=== PATIENT | female | born 1945 | race Caucasian/White ===

== ENCOUNTER → 2022-12-22 | Outpatient (CLI) | payer MEDICARE, SELFPAY ==
--- NOTE | 2022-12-22 12:41 | CT_ITS ---
STUDY: CTA CHEST REASON FOR EXAM: Female, 77 years old. Abnormal echo RADIATION DOSAGE (If Supplied By Facility): CTDIvol = ( 8.72 ) mGy, DLP = ( 493.31 ) mGycm TECHNIQUE: The examination was performed with the intravenous administration of IV 100mL Isovue-370. Post-processing of the angiographic images was performed, with multiplanar reformation and 3D reconstruction. Individualized dose optimization techniques were used for this CT. COMPARISON: None. FINDINGS: Normal enhancement of the main pulmonary artery and right and left pulmonary arteries. Normal enhancement of the bilateral peripheral pulmonary arteries. There is no demonstrated pulmonary embolism. There is atherosclerotic calcification of the aortic arch with tortuosity. There is no demonstrated aortic dissection. There are calcifications of the coronary arteries. Normal mediastinum. Normal hilar regions. Normal visualized trachea and bronchi. The lungs are well expanded. Normal pulmonary parenchyma. Normal pleura. Normal chest wall structures. There are degenerative changes of thoracic spine. Normal visualized upper abdomen. CT/CTA Chest W/WO Contrast IMPRESSION: No acute abnormality is seen. Electronically Signed: Bassam Denson MD at 15:10 EDT ,
[2022-12-22 13:45] LABS: CREATININE FINGERSTICK < 0.9 mg/dL (0.55-1.02); EGFR FINGERSTICK > 60.0000 mL/min (>60)
== END | disposition home or self-care (01) ==
LOC: CT 12:40
PROVIDERS: PCP Physician Assistant; Referring Provider Internal Medicine Cardiovascular Disease; Visit Provider Internal Medicine Cardiovascular Disease
DX: R93.1 Abnormal findings on diagnostic imaging of heart and coronary circulation (principal); I51.7 Cardiomegaly
CPT/HCPCS: 71275; Q9967

== ENCOUNTER → 2023-01-09 | Outpatient (CLI) | payer MEDICARE, SELFPAY ==
--- NOTE | 2023-01-11 15:30 | STRESSREP_ITS ---
Stress Test Report Date: 01/09/2023 Procedure: Pharmacologic stress nuclear imaging study Indications: Abnormal echocardiogram Consent: Per the patient Procedure: The patient underwent pharmacologic (Regadenoson 0.4mg ) evaluation with a peak heart rate of 134 beats per minute (94%predicted maximal heart rate) and a peak blood pressure of 140/82 mmHg. The baseline ECG demonstrated normal sinus rhythm. The peak pharmacologic ECG demonstrated no ischemic changes. There were no cardiac dysrhythmias pretest, during pharmacologic infusion, or recovery. There was no complaint of chest discomfort during pharmacologic infusion or recovery. The patient was injected with 11.4 millicuries of technetium 99m Cardiolite and subsequently rest SPECT Cardiolite nuclear imaging was obtained in the horizontal long, vertical long, and short axis views. The patient underwent pharmacologic (Regadenoson) evaluation. The patient was injected with 34.6 mi llicuries of technetium 99m Cardiolite and subsequently stress SPECT Cardiolite nuclear imaging was obtained in the horizontal long, vertical long, and short axis views. A gated Cardiolite study at peak stress was obtained. The examination was stopped secondary to completion of protocol. Rest and stress SPECT Cardiolite nuclear imaging status post realignment, normalization, and attenuation correction demonstrate no fixed or reversible perfusion defects. There is end systolic thickening and brightening. The gated Cardiolite study demonstrates myocardial thickening and inward wall motion. The reported LVEF is 88%. Impression: 1. Pharmacologic (Regadenoson) evaluation 2. Peak pharmacologic ECG with no ischemic changes. 3. There were no cardiac dysrhythmias pretest, during pharmacologic infusion, or recovery. 5. No fixed or reversible perfusion defects. 6. The gated Cardiolite study reports an LVEF of 88%. This note was generated with [employer] software. It may contain incorrect words, spelling, and punctuation that were not noted in checking the note before signing.
== END | disposition home or self-care (01) ==
PROVIDERS: PCP Physician Assistant; Referring Provider Internal Medicine Cardiovascular Disease; Visit Provider Internal Medicine Cardiovascular Disease
DX: R94.31 Abnormal electrocardiogram [ECG] [EKG] (principal); I25.10 Atherosclerotic heart disease of native coronary artery without angina pectoris; R60.0 Localized edema; R93.1 Abnormal findings on diagnostic imaging of heart and coronary circulation; I51.89 Other ill-defined heart diseases; I51.7 Cardiomegaly; I10 Essential (primary) hypertension; E78.5 Hyperlipidemia, unspecified
CPT/HCPCS: 78452; 93017; A9500; A4216; J2785

== ENCOUNTER → 2023-04-16 | Outpatient (CLI) | payer MEDICARE, SELFPAY ==
--- NOTE | 2023-04-16 10:41 | VDLE_ITS ---
Reason For Study: Pain BLE RIGHT LEFT CFV is compressible, spontaneous, phasic, CFV is compressible, spontaneous, phasic, competent and demonstrates normal competent, and demonstrates normal augmentation. augmentation. FV is compressible, spontaneous, phasic, FV is compressible, spontaneous, phasic, competent and demonstrates normal competent and demonstrates normal augmentation. augmentation. POP V is compressible, spontaneous, phasic, POP V is compressible, spontaneous, phasic, competent and demonstrates normal competent and demonstrates normal augmentation. augmentation. T/P Trunk is compressible. T/P Trunk is compressible. PTV is compressible. PTV is compressible. RT PerV is compressible. LT PerV is compressible. SFJ is competent and measures 0.43cm x 0.40 SFJ is competent and measures 0.54cm x 0.47 cm. cm. GSV proximal thigh measures 0.27cm x 0.27 cm. GSV proximal thigh measures 0.39cm x 0.38 cm. GSV at knee measures 0.53cm x 0.60 cm. GSV at knee measures 0.41cm x 0.38 cm. GSV INCOMPETENT throughout for greater than GSV INCOMPETENT throughout for greater than 0.5 seconds. 0.5 seconds. ASV proximal thigh is INCOMPETENT for greater ASV proximal calf is INCOMPETENT for greater than 0.5 seconds and measures 0.56cm x 0.58 than 0.5 seconds and measures 0.39cm x 0.42 cm. cm. ASV distal thigh is INCOMPETENT for greater SSV proximal calf is INCOMPETENT for greater than 0.5 seconds and measures 0.49cm x 0.53 than 0.5 seconds and measures 0.22cm x 0.20 cm. cm. ASV proximal calf is INCOMPETENT for greater than 0.5 seconds and measures 0.51cm x 0.47 cm. SSV proximal calf is INCOMPETENT for greater than 0.5 seconds and measures 0.27cm x 0.26 cm. Procedure This is a venous duplex using B-mode, color flow and spectral Doppler. Exam performed in department. A preliminary report was called and/or faxed to Dr. Jorgensen. VL/Venous Duplex US - Adithya Extrem Interpretation Summary Deep veins of the bilateral lower extremities are patent and compressible segme ntally. There is no evidence of bilateral lower extremity deep vein thrombosis. The bilateral great saphenous veins appear patent and compressible segmentally. Positive for reflux in the right great saphenous vein, accessoory saphenous vei n, and small saphenous vein. Positive for reflux in the left great saphenous vein, accessoory saphenous vein , and small saphenous vein. Ordering Physician: Cesar Jorgensen Referring Physician: Francisca Guajardo Performed By: Zahra Medina, CHRISCS, RVT
== END | disposition home or self-care (01) ==
PROVIDERS: PCP Physician Assistant; Referring Provider Surgery Trauma Surgery; Visit Provider Surgery Trauma Surgery
DX: R60.0 Localized edema (principal)
CPT/HCPCS: 93970

== ENCOUNTER → 2024-09-19 | Outpatient (CLI) | payer MEDICARE, SELFPAY ==
--- NOTE | 2024-09-19 08:56 | VDLE_ITS ---
Reason For Study: Swelling RIGHT LEFT CFV is compressible, spontaneous, phasic, GSV is normal. competent and demonstrates normal CFV is compressible, spontaneous, phasic, augmentation. competent, and demonstrates normal Procedure augmentation. This is a venous duplex using B-mode, color FV is compressible, spontaneous, phasic, flow and spectral Doppler. competent and demonstrates normal Exam performed in department. augmentation. Patient was scanned in reverse Trendelenburg POP V is compressible, spontaneous, phasic, position during reflux assessment. competent and demonstrates normal augmentation. T/P Trunk is compressible. PTV is compressible. LT PerV is compressible. SFJ is competent and measures 0.61 cm. GSV proximal thigh measures 0.45x0.49 cm. GSV at knee measures 0.39x0.48 cm. GSV INCOMPETENT throughout for greater than 0.5 seconds. ASV proximal calf is INCOMPETENT for greater than 0.5 seconds and measures 0.42x0.46 cm. Comes from ASV in groin that is competent. SSV mid calf is INCOMPETENT for greater than 0.5 seconds and measures 0.21x0.28 cm. VL/Venous Duplex US, Unilateral Interpretation Summary Deep veins of the left lower extremity are patent and compressible segmentally. There is no evidence of left lower extremity deep vein thrombosis. The left great saphenous vein belinda ears patent and compressible segmentally. Positive for reflux in the left great saphenous vein throughout, accessory saph enous vein in proximal calf, small saphenous vein Ordering Physician: Vandana Saucedo Referring Physician: Francisca Guajardo PA Performed By: Yelena Bernard RVT and Student
== END | disposition home or self-care (01) ==
LOC: CVS 08:55
PROVIDERS: PCP Physician Assistant; Referring Provider Physician Assistant; Visit Provider Physician Assistant
DX: I87.2 Venous insufficiency (chronic) (peripheral) (principal); I83.812 Varicose veins of left lower extremity with pain
CPT/HCPCS: 93971

== ENCOUNTER 2024-10-15 09:08 | Day surgery (SDC) | payer MEDICARE, SELFPAY ==
[2024-10-14 08:58] VITALS: BMI 39.6
--- NOTE | 2024-10-15 10:14 | HP.PCM_ITS ---
HPI - General HPI Narrative [address], is a 79 F who presents with painful varicose veins of the left leg refractory to compression. She has reflux throughout the left GSV. She presents for chemical ablation. [facility] Medical History Abnormal echocardiogram Diastolic dysfunction Cardiomegaly Enlargement of right atrium Enlarged RV (right ventricle) Osteopenia Depression, major, recurrent, in remission Hyperlipidemia Essential (primary) hypertension Vitamin D deficiency Vertebrobasilar insufficiency Cervical arthritis Anxiety Home Medications ?Medication ?Instructions ?Recorded ?Last Taken ?Type albuterol sulfate 90 mcg/actuation 2 puff inhalation Q6H PRN 11/21/22 Unknown History aerosol inhaler shortness of breath or wheezing calcium carbonate (Calcium 600) 1,200 mg PO DAILY 11/21/22 Unknown History lovastatin 20 mg tablet 20 mg PO QHS 11/21/22 Unknown History cholecalciferol (vitamin D3) 50 50 mcg PO DAILY 11/29/22 Unknown History mcg (2,000 unit) capsule multivitamin 1 tab PO DAILY 11/29/22 Unknown History omega 3-hoe-nee-fish oil 300 1 cap PO DAILY 11/29/22 Unknown History mg-1,000 mg capsule (Fish Oil) aspirin 81 mg tablet,delayed 81 mg PO DAILY 03/15/23 Unknown History release famotidine 20 mg tablet 20 mg PO DAILY heartburn 03/15/23 Unknown History fluticasone propionate 50 1 spray intranasal BID stuffiness 03/15/23 Unknown History mcg/actuation nasal spray,suspension losartan 50 mg tablet 50 mg PO DAILY #30 tabs 03/03/24 10/15/24 Rx Allergy/AdvReac Type Severity Reaction Status Date / Time sulfamethoxazole (From Allergy Severe Rash Verified 08/06/24 13:08 Bactrim) trimethoprim (From Bactrim) Allergy Severe Rash Verified 08/06/24 13:08 Family History Mother Angina pectoris Surgical History History of appendectomy History of tonsillectomy Social History Smoking Status: Former smoker how long ago did patient quit smoking: quit 45+ years alcohol intake: current alcohol intake frequency: holidays/special occasions only details: very little substance use type: does not use caffeine: Yes Type: coffee Number of servings: 1 ROS Constitutional Constitutional: Denies chills, fever(s), frequent falls, lethargy or weakness Eyes Eyes: Denies blind spots, change in vision or loss of vision ENT HEENT: Denies bleeding gums, hoarseness or sore throat Cardiovascular Cardiovascular: Denies abdominal pain, bluish discoloration of hand/feet, chest pain with activity, claudication, cold extremities, cyanosis, dyspnea on exertion, erythema on extremities, irregular heart rhythm, leg edema, leg ulcers, numbness in extremities or weakness in extremities Respiratory/Chest Respiratory/Chest: Denies cough, excessive phlegm production, shortness of breath at rest, shortness of breath with exertion or wheezing Gastrointestinal Gastrointestinal: Denies anorexia, change in stool character, constipation, diarrhea, melena or rectal bleeding Genitourinary Genitourinary: Denies dysuria or hematuria Musculoskeletal Musculoskeletal: Denies abnormal gait Integumentary Integumentary: Reports other Details: ; Denies erythema, non-healing lesions or wounds Neurologic Neurologic: Denies abnormal speech, focal weakness, headache(s), loss of vision, numbness, paresthesias or sensory deficit Hematologic/Lymphatic Hematologic/Lymphatic: Denies easy bleeding, easy bruising or lymphadenopathy Vital Signs Vital Signs Vital Signs: Weight Weight: 224 lb Body Mass Index (BMI) 39.6 Physical Exam Const alert, oriented x3, no apparent distress and healthy appearing General Appearance: cooperative; Negative for combative or lethargic Orientation / Consciousness: awake Exam Limitations: no limitations HEENT Head and Scalp: normocephalic and atraumatic Eyes EOMs intact bilaterally General Eye: normal appearance of both eyes Neck full ROM General: trachea midline Resp normal respiratory effort and no use of accessory muscles Effort and Inspection: Negative for labored, stridor or audible wheezes Cardio regular rate and regular rhythm Back/Spine Cervical Spine: cervical ROM normal Extremity full ROM, normal capillary refill and no clubbing, cyanosis or edema Skin no rashes or lesions noted and no wounds Neuro oriented x3, CN's II-XII intact bilaterally, no focal motor deficits and no sensory deficits noted Psych thought process normal, cooperative, affect normal, speech normal and activity/motor behavior normal Assessment & Plan Assessment/Plan (1) Symptomatic varicose veins of left lower extremity: PLAN: -painful varicose veins -chemical ablation
--- NOTE | 2024-10-15 15:25 | PCM.OPRPT ---
Operative Report (Standard) Operative Information Date of Procedure: 10/15/24 Pre-Operative Diagnosis: Varicose veins of the left lower extremity with pain Post-Operative Diagnosis: Same Surgery/Procedure Performed: Chemical ablation left great saphenous vein instructor programmable controllers: No Type of Anesthesia: Local and Sedation,Conscious Procedure Start Time: 10:20 Procedure Stop Time: 11:10 Select all DRAINS/GRAFTS/IMPLANTS that apply: None Estimated Blood Loss: 2 Specimen collected: No Description of surgery: HPI: Patient is an 79-year-old female with painful varicose veins of left lower extremity which are refractory to compression therapy. She has venous reflux duplex that reveals incompetent great saphenous vein throughout. She presents now for chemical ablation. Description of procedure: Upon obtaining form consent and verification correct patient procedure site the patient was taken to the [facility] where she was positioned prepped and draped in usual sterile fashion. Timeout was performed to count sedation administered Versed and fentanyl. The left great saphenous vein was evaluated ultrasound found to be contiguous from the distal calf to the saphenofemoral junction however there is a segment in the mid calf which is very small caliber with what appeared to be thickened montanez and there were large accessory branches superior to this suggesting that there was no significant flow through the segment. Skin overlying the great saphenous vein superior to the narrow segment was anesthetized 1% lidocaine the vessel accessed with a micropuncture needle wire. This was exchanged for micropuncture sheath through which a J-wire was advanced and the micropuncture sheath exchanged for a 7 [place] sheath. Through the 7 [place] sheath a Bentson wire was advanced under ultrasound guidance up to the saphenofemoral junction. Over the wire the glue delivery guide was advanced and positioned just below the saphenofemoral junction. Measurements were obtained confirming that it was 5 cm inferior to the junction. The dilator was withdrawn and the glue delivery catheter advanced through the guide position 5 cm inferior to the saphenofemoral junction. The saphenofemoral junction was then compressed and glue was delivered sequentially along the length the great saphenous vein per instructions for use. At the completion the guide and catheter withdrawn and the saphenofemoral junction assessed found to be patent with no chemical adhesive at the junction. A 7 [place] sheath was then withdrawn manner pressure until hemostasis was obtained. Dry sterile dressing [place] wrap were applied and the patient was then taken to the recovery with plan discharged home. Surgical Findings: See above Complications Complications: No
== END 2024-10-15 12:25 | disposition home or self-care (01) ==
PROVIDERS: PCP Physician Assistant; Referring Provider Surgery Trauma Surgery; Visit Provider Surgery Trauma Surgery
DX: I83.812 Varicose veins of left lower extremity with pain (principal); I10 Essential (primary) hypertension; Z79.82 Long term (current) use of aspirin; Z79.899 Other long term (current) drug therapy; Z87.891 Personal history of nicotine dependence
CPT/HCPCS: 36482; 99152; 99153; C1894

== ENCOUNTER → 2024-10-21 | Outpatient (CLI) | payer MEDICARE, SELFPAY ==
--- NOTE | 2024-10-21 08:52 | VDLE_ITS ---
Reason For Study: s/p GSV Ablation RIGHT LEFT CFV is compressible, spontaneous, phasic, CFV is compressible, spontaneous, phasic, competent and demonstrates normal competent, and demonstrates normal augmentation. augmentation. Procedure FV is compressible, spontaneous, phasic, This is a venous duplex using B-mode, color competent and demonstrates normal flow and spectral Doppler. augmentation. Exam performed in department. POP V is compressible, spontaneous, phasic, A preliminary report was called and/or faxed competent and demonstrates normal to Tani NI. augmentation. T/P Trunk is compressible. PTV is compressible. LT PerV is compressible. Lt GSV is occluded from prox calf to 1 cm from the SFJ s/p vein gluing procedure Lt GSV is compressible in the mid and distal calf. VL/Venous Duplex US, Unilateral Interpretation Summary Deep veins of the left lower extremity are patent and compressible segmentally. There is no evidence of left lower extremity deep vein thrombosis. Left great saphenous vein occluded consistent with recent chemical ablation. Ordering Physician: Vandana Saucedo Referring Physician: Francisca Guajardo Performed By: Zahra Medina, JONO, RVT
== END | disposition home or self-care (01) ==
PROVIDERS: PCP Physician Assistant; Referring Provider Physician Assistant; Visit Provider Physician Assistant
DX: R60.0 Localized edema (principal)
CPT/HCPCS: 93971